=== PATIENT | male | born 1990 | race Caucasian/White ===

== ENCOUNTER 2020-04-15 14:27 | Emergency (ER) | payer OTHER ==
[~2020-04-15 14:27] MED LIST: MEDROL 4MG DOSEP4 MG PO; TESSALON PERLE100 M1 PO; VENTOLIN HFA18 GM INH
[2020-04-15 15:25] LABS: BILIRUBIN 1+ mg/dL (NEGATIVE); BLOOD TRACE-INTACT Ery/uL (NEGATIVE); CLARITY CLEAR (CLEAR); COLOR YELLOW (YELLOW); GLUCOSE (U) NORMAL (NORMAL); LEUKOCYTES NEGATIVE Leu/uL (NEGATIVE); NITRITE NEGATIVE (NEGATIVE); PROTEIN NEGATIVE (NEGATIVE); pH 6.5 (5.0-9.0)
[2020-04-15 15:30] LABS: BASOPHIL 1.2 % (0-2); EOSINOPHIL 3.7 % (0-5); HCT 53.4 % (42.0-52.0); HGB 18.3 g/dl (13.2-18.0); LYMPHOCYTE 37.3 % (15-48); MCH 34.6 pg (25.0-31.0); MCHC 34.3 g/dL (32.0-36.0); MCV 100.9 fL (78.0-100.0); MONOCYTE 11.8 % (0-12); MPV 9.9 fL (6.0-9.5); NEUTROPHIL 45.2 % (41-80); NRBC 0; PLT 264 K/uL (150-400); RBC 5.29 M/uL (4.70-6.00); WBC 6.5 K/uL (4.0-10.5)
[2020-04-15 15:31] LABS: MUCOUS LARGE; URINARY WBC RARE
[2020-04-15 15:32] LABS: AMORPHOUS URATES CRYSTALS TRACE
[2020-04-15 16:11] LABS: ALBUMIN 4.1 g/dL (3.4-5.0); BILIRUBIN - TOTAL 0.6 mg/dL (0.2-1.0); BUN/CREAT RATIO (CALC) 7.9 RATIO; CREATININE 0.76 mg/dL (0.67-1.17); GLOBULIN (CALCULATION) 4.4 g/dL; POTASSIUM 4.2 mmol/L (3.5-5.1); TOTAL PROTEIN 8.5 g/dL (6.4-8.2)
[2020-04-15] MEDS ORDERED: VENTOLIN HFA IN18 GM INH (16:50)
== END 2020-04-15 17:25 | disposition home or self-care (01) ==
LOC: FER 14:27
PROVIDERS: Nurse Practitioner Family
DX: U07.1 COVID-19 (principal); F17.210 Nicotine dependence, cigarettes, uncomplicated
CPT/HCPCS: 36415; 71046; 80053; 81001; 85025; J2930